=== PATIENT | female | born 1995 | race Caucasian/White ===

== ENCOUNTER → 2016-08-27 | Outpatient (CLI) | payer OTHER ==
[~2016-08-27] MED LIST: ACET50TA PO; IBUP80TA PO; PERC5TAB6 PO; PRENTAB16 PO; PROM125TA PO; REGL10TA6 PO; VITA1CHW11 PO; VITAPRTA PO; ZOFR20TA PO
[2016-08-27 18:12] LABS: BASO % 0.6 % (0.0-1.0); EOS # 0.3 K/mm3 (0.0-0.50); EOS % 3.4 % (0.0-3.0); LARGE UNSTAINED CELL # 0.1 K/mm3 (0.0-0.4); LARGE UNSTAINED CELL % 1.4 % (0.0-4.0); LYMPH # 1.5 K/mm3 (1.5-6.5); MEAN CORPUSCULAR HEMOGLOBIN 28.9 pg (27.0-33.0); MEAN CORPUSCULAR HGB CONC 32.5 g/dl (32.0-36.5); MEAN CORPUSCULAR VOLUME 88.9 fl (80.0-96.0); MONO # 0.5 K/mm3 (0.0-0.8); MONO % 5.4 % (0.0-5.0); NEUTROPHILS # 6.3 K/mm3 (1.8-7.7); NEUTROPHILS % 72.3 % (36.0-66.0); PLATELET COUNT, AUTOMATED 298 k/mm3 (150-450); RED CELL DISTRIBUTION WIDTH 13.8 % (11.5-14.5); WHITE BLOOD COUNT 8.7 K/mm3 (4.0-10.0)
[2016-08-29 19:06] LABS: CONTROL LINE INT CTR LINE PRESENT; HIV SCRN NEGATIVE (NEGATIVE); HIV SCRN1 NEGATIVE (NEGATIVE)
[2016-08-30 10:47] LABS: HBsAg Prenatal NEGATIVE (NEGATIVE)
== END ==
LOC: M SMT 14:07
PROVIDERS: ATTEND Specialist
DX: Z34.81 Encounter for supervision of other normal pregnancy, first trimester (principal)

== ENCOUNTER → 2016-11-23 | Outpatient (CLI) | payer OTHER | LOC: M SMT 10:37 | PROVIDERS: ATTEND Advanced Practice Midwife | DX: Z34.83 Encounter for supervision of other normal pregnancy, third trimester (principal) | CPT/HCPCS: 36415; 86850; 86901; J2790 ==

== ENCOUNTER → 2017-01-12 | Outpatient (REF) | payer OTHER | LOC: M LAB REF 12:54 | PROVIDERS: ATTEND Specialist | DX: Z34.83 Encounter for supervision of other normal pregnancy, third trimester (principal) ==

== ENCOUNTER 2017-02-06 08:07 | Inpatient (IN) | payer MEDICAID ==
[2017-02-06] VITALS (10 sets, daily range): BP systolic 94–214; BP diastolic 51–145
[~2017-02-06] VITALS: Ht 160 cm; Wt 70.0 kg
[2017-02-06] MEDS ORDERED: LR 1,000 ML IV SCH (08:32)
[2017-02-06] MEDS ORDERED: LACTATED RINGER'S 1000 ML IV STA (08:32)
[2017-02-06 09:24] LABS: MEAN CORPUSCULAR HEMOGLOBIN 24.1 pg (27.0-33.0); MEAN CORPUSCULAR HGB CONC 31.7 g/dl (32.0-36.5); MEAN CORPUSCULAR VOLUME 75.9 fl (80.0-96.0); RED CELL DISTRIBUTION WIDTH 15.6 % (11.5-14.5); WHITE BLOOD COUNT 12.8 K/mm3 (4.0-10.0)
[2017-02-06] MEDS ORDERED: OXYTOCIN 30 UNITS IN 0.9% NaCl 500ML IV BAG (J2590) As Ordered ONE (09:41)
[2017-02-06] MEDS ORDERED: RHOGAM 300 MCG (1500 IU) INJ (J2790) IM SCH (10:15)
[2017-02-06] MEDS ORDERED: MEASLES,MUMPS,RUBELLA VACCINE INJ (MMR-II) (90707) SC SCH (10:15)
[2017-02-06] MEDS ORDERED: IBUPROFEN 800 MG TAB PO PRN (10:15)
[2017-02-06] MEDS ORDERED: DIBUCAINE 1% OINTMENT 30GM TOP PRN (10:15)
[2017-02-06] MEDS ORDERED: ACETAMINOPHEN 500 MG TAB PO PRN (10:15)
[2017-02-06] MEDS ORDERED: DOCUSATE SODIUM 100 MG CAP PO PRN (10:15)
[2017-02-06] MEDS ORDERED: ANUSOL HC CREAM 30GM TOP PRN (10:15)
[2017-02-06] MEDS ORDERED: METHYLERGONOVINE MALEATE 0.2 MG TAB PO PRN (10:15)
[2017-02-06 10:16] LABS: CORD GAS HCO3 A 22.4 MEQ/L; CORD GAS O2 SAT A 17.9 %; CORD GAS PCO2 A 45.8 mmHg; CORD GAS PH A 7.308 UNITS; CORD GAS PO2 A 12.4 mmHg; CORD GAS SBC A 19.3 MEQ/L; CORD GAS TCO2 A 23.8 MEQ/L
[2017-02-06 10:19] LABS: CORD GAS HCO3 V 21.7 MEQ/L; CORD GAS O2 SAT V 18.6 %; CORD GAS PH V 7.375 UNITS; CORD GAS PO2 V 12.3 mmHg; CORD GAS TCO2 V 22.9 MEQ/L
[2017-02-06] MEDS ORDERED: OXYTOCIN DRIP 30 UNITS in APPROPRIATE DILUENT 1 EA IV SCH (10:20)
--- NOTE | 2017-02-06 11:28 | HPE ---
DATE OF ADMISSION: 02/06/2017 Juany is a 22-year-old female, 2, para 1-0-0-1, with an estimated date of confinement (EDC) of 02/02/2017, estimated gestational age (EGA) 40-3/7 weeks' gestation, who presented to labor and delivery with complaints of contractions every 3-4 minutes. Upon evaluation, she was found to be in active labor. At this point, a decision was made for admission. Her records reviewed, which was essentially unremarkable. LABORATORY: Blood type is A negative, rubella immune, hepatitis negative, HIV negative, gonorrhea culture (GC) and chlamydia negative, 1-hour sugar testing was within normal limits. Her group B streptococcus (GBS) is negative. MEDICAL HISTORY: Denies. SURGICAL HISTORY: Denies. SOCIAL HISTORY: Denies any alcohol, drugs. or cigarette smoking. REVIEW OF SYSTEMS: Unremarkable. MEDICATIONS: - vitamins ALLERGIES: No known drug allergies. PHYSICAL EXAMINATION HEENT: Grossly within normal limits. Abdomen: Soft, nontender, nondistended. Extremities: No clubbing, cyanosis, or edema. Vaginal examination done by registered nurse (RN): 5 cm, 100%, fetus at zero station. Category 1 tracing. ASSESSMENT: 1. Intrauterine at 40-3/7 weeks' gestation, in active labor. 2. Group B streptococcus negative. PLAN: Admit to labor and delivery. Routine laboratories sent. Awaiting delivery.
--- NOTE | 2017-02-06 11:59 | DN ---
DATE: 02/06/2017 Juany is a 22-year-old female, 2, para 1-0-0-1, with an EDC of 02/02/2017, EGA 40-3/7 weeks gestation who was admitted in active labor. She had artificial rupture of membrane with thick meconium. She then became fully dilated and pushed delivered a live female in right occiput anterior position over an intact perineum. 7 and 9, weight 7 pounds 4 ounces. Placenta delivered spontaneously intact. Three-vessel cord. The perineum, vagina, cervix inspected. Small abrasion noted. Estimated blood loss 250 mL. Both mother and baby in stable condition. Baby was cared for by our oil truck driver, Dr. Linares.
[2017-02-07 05:50] VITALS: BP 105/61
[2017-02-07] MEDS ORDERED: PRENATAL VITAMINS CHEWABLE TABLET PO SCH (09:00)
[2017-02-07] MEDS ORDERED: ACET50TA PO (14:25)
[2017-02-07] MEDS ORDERED: IBUP-1114 PO (14:25)
== END 2017-02-07 14:40 | disposition home or self-care (01) | DRG 560 ==
LOC: M LDO 08:07 → M LDI 08:27 → M OBS 12:35
PROVIDERS: ADMIT Obstetrics & Gynecology; ATTEND Obstetrics & Gynecology
PROC: 10E0XZZ Delivery of Products of Conception, External Approach (ICD-10-PCS; principal; 2017-02-06)
PROC: 10907ZC Drainage of Amniotic Fluid, Therapeutic from Products of Conception, Via Natural or Artificial Opening (ICD-10-PCS; 2017-02-06)
DX: O48.0 Post-term pregnancy (principal); O77.0 Labor and delivery complicated by meconium in amniotic fluid; Z37.0 Single live birth; Z3A.40 40 weeks gestation of pregnancy; Z79.899 Other long term (current) drug therapy

== ENCOUNTER → 2017-09-02 | Outpatient (REF) | payer OTHER | LOC: M LAB REF 18:07 | DX: Z12.4 Encounter for screening for malignant neoplasm of cervix (principal) ==

== ENCOUNTER → 2017-09-15 | Outpatient (CLI) | payer OTHER | LOC: M RAD 08:08 | DX: R10.11 Right upper quadrant pain (principal) | CPT/HCPCS: J2805 ==